=== PATIENT | male | born 1965 | race Hispanic/Latino ===

== ENCOUNTER 2017-04-02 09:00 | Emergency (ER) | payer SELFPAY ==
[2017-04-02 09:22] LABS: Bilirubin Negative (Negative); Blood, Urine Negative (Negative); Clarity CLEAR (Clear); Glucose, Urine (Dipstick) Negative (Negative); Leukocyte Negative (Negative); Nitrite Negative (Negative); Protein, Urine (Dipstick) Negative (Neg-Trace); Specific Gravity, Urine 1.018 (1.002-1.036); Urobilinogen 0.2 mg/dL (0.2-1.0)
[2017-04-02] MEDS ORDERED: Ondansetron HCl/PF 4 MG/2 ML Vial ONE (10:23)
[2017-04-02] MEDS ORDERED: Morphine 4 MG/ML Carpuject ONE (10:23)
--- NOTE | 2017-04-02 10:32 | CT ---
EXAM: ABDOMEN CT WITHOUT CONTRAST PELVIC CT WITHOUT CONTRAST: COMPARISON: 08/26/16. HISTORY: Abdominal pain. Previous cholecystectomy. TECHNIQUE: Abdomen and pelvic CT are performed without IV or oral contrast. Coronal reformatted images are subm itted for interpretation. FINDINGS: ABDOMEN CT: Chronic changes in the lung bases. Heart size is normal. No pericardial effusion. The descending t horacic aorta and abdominal aorta have a normal caliber. No periaortic fat stranding. No gastrohepatic, retrocrural, or periportal lymphadenopathy. No mesenteric mass, lymphadenopathy, free air, or free fluid. Gallbladder is surgically absent. Limited evaluation of the solid organs due to absence of IV contrast. Grossly, no solid organ abnorm ality. There is an 8 mm nodule associated with the lateral limb of the left adrenal gland with atten uation coefficient of 9 Hounsfield units. Benign adenoma is favored. Findings unchanged. Limited evaluation of the alimentary canal due to the lack of oral contrast. No evidence of bowel ob struction. Normal-caliber appendix. No mesenteric mass, lymphadenopathy, free air, or free fluid. Stable hypodensity emanating from the lower pole of the right kidney measuring 4.6 x 5.1 cm with an a ttenuation coefficient of 7 Hounsfield units, compatible with a cyst. There are left parapelvic cyst s. Bilaterally, no hydronephrosis, nephrolithiasis, or perinephric fat stranding. Bilateral ureters have a normal caliber. No hydroureter, periureteral stranding, or ureterolithiasis. PELVIC CT: No mass, lymphadenopathy, free air, or free fluid. The urinary bladder is unremarkable. IMPRESSION: 1. No evidence of nephrolithiasis or obstructive uropathy. 2. Left parapelvic cyst. 3. Right renal cyst. 4. Interval cholecystectomy. 5. 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 POS: [facility]
[2017-04-02 10:41] LABS: #Basophils 0.1 thou/uL (0.0-0.2); #Eosinphils 0.2 thou/uL (0.0-0.7); #Lymphocytes 3.7 thou/uL (1.20-3.40); #Neutrophils 7.5 thou/uL (1.40-6.50); %Eosinophils 1.3 % (0.0-10.0); %Lymphocytes 29.6 % (21.0-51.0); Hemoglobin 18.5 g/dL (14.0-18.0); Mean Corpuscular HGB CONC 34.9 g/dL (32.0-36.0); Mean Corpuscular Hemoglobin 32.6 pg (27.0-31.0); Mean Corpuscular Volume 93.3 fl (80.0-94.0); Mean Platelet Volume 7.3 fL (7.4-10.4); Platelet Count 243 thou/uL (130-400); RBC Distribution Width 12.6 % (11.5-14.5); Red Blood Cell (RBC) Count 5.68 mill/uL (4.70-6.10); White Blood Cell (WBC) Count 12.5 thou/uL (4.8-10.8)
[2017-04-02 11:02] LABS: ALT (SGPT) 41 U/L (8-55); AST (SGOT) 19 U/L (5-34); Albumin 4.3 g/dL (3.5-5.0); Alkaline Phosphatase 106 U/L (40-150); Anion Gap 16 mmol/L (10-20); BUN (Urea Nitrogen) 15 mg/dL (8.4-25.7); Bilirubin, Total 0.5 mg/dL (0.2-1.2); Calc. Creatinine Clearance 0 mL/min (70-130); Calcium 9.6 mg/dL (7.8-10.44); Carbon Dioxide 18 mmol/L (22-29); Chloride 105 mmol/L (98-107); Estimated GFR-MDRD Greater than 90; Globulin 3.2 g/dL (2.4-3.5); Glucose 105 mg/dL (70-105); Lipase 17 U/L (8-78); Potassium 3.9 mmol/L (3.5-5.1); Protein, Total 7.5 g/dL (6.0-8.3); Sodium 135 mmol/L (136-145)
== END 2017-04-02 12:46 | disposition home or self-care (01) ==
LOC: ERS 09:00
DX: R10.31 Right lower quadrant pain (principal); I10 Essential (primary) hypertension; F17.210 Nicotine dependence, cigarettes, uncomplicated
CPT/HCPCS: 36415; 74176; 80053; 81003; 83690; 85025; 96361; 96374; 96375; J2270; J2405